=== PATIENT | female | born 1995 | race African-American/Black ===

== ENCOUNTER 2016-11-22 18:19 | Inpatient (IN) | payer MEDICAID, OTHER ==
[~2016-11-22] VITALS: Ht 180.3 cm; Wt 68.0 kg
[2016-11-22] MEDS ORDERED: SODIUM CHLORIDE 0.9% 1,000 ML IV ONE ×2 (19:00→21:45)
[2016-11-22] MEDS ORDERED: MORPHINE SULFATE 4 MG/ML CPJ (NOT FOR IM USE) IV STA (19:00)
[2016-11-22] MEDS ORDERED: ONDANSETRON HCL 4MG/2ML VIAL IV STA (19:00)
[2016-11-22 19:20] LABS: BASOPHILS % 0.8 % (0.0-2.0); EOSINOPHILS % 0.3 % (0.0-5.0); HEMATOCRIT. 41.9 % (36.0-48.0); HEMOGLOBIN. 13.4 g/dL (12.0-16.0); LYMPHOCYTES % 16.9 % (20.0-50.0); MEAN CORPUSCULAR HEMOGLOBIN 22.8 pg (28.0-32.0); MEAN CORPUSCULAR VOLUME 71.1 fL (81.0-99.0); MEAN PLATELET VOLUME 9.1 fl (7.4-10.4); MONOCYTES % 7.3 % (2.0-8.0); NEUTROPHILS % 74.7 % (40.0-76.0); PLATELET 301 x1000/uL (130-400); RED BLOOD CELL COUNT 5.89 mill/uL (4.2-5.4); RED CELL DISTRIBUTION WIDTH 16.9 % (11.6-14.6)
[2016-11-22 19:24] LABS: CHLORIDE 107 mEq/L (98-107)
[2016-11-22 19:27] LABS: INR 1.1; PROTHROMBIN TIME 11.7 sec (9.4-11.6)
[2016-11-22 19:30] LABS: HCG SCREEN NEGATIVE
[2016-11-22 19:33] LABS: CARBON DIOXIDE 22 mEq/L (21-32)
[2016-11-22 19:50] LABS: CLARITY URINE TURBID (CLEAR); COLOR URINE DARK YELLOW (YELLOW); GLUCOSE URINE NEGATIVE (NEGATIVE); KETONES URINE 3+ (NEGATIVE); LEUKOCYTE ESTERASE URINE TRACE (NEGATIVE); NITRITE URINE NEGATIVE (NEGATIVE); OCCULT BLOOD URINE 2+ (NEGATIVE); PH URINE 5.5 (4.5-8.0); PROTEIN URINE 3+ (NEGATIVE); SPECIFIC GRAVITY URINE 1.045 (1.005-1.030)
[2016-11-22 20:07] LABS: *AMPHETAMINES SCREEN URINE NEGATIVE (NEGATIVE); *BARBITURATES SCREEN URINE NEGATIVE (NEGATIVE); *BENZODIAZEPINES SCREEN URINE NEGATIVE (NEGATIVE); *COCAINE SCREEN URINE NEGATIVE (NEGATIVE); CANNABINOID URINE SCREEN PRESUMTIVE POSITIVE (NEGATIVE); METHADONE URINE SCREEN NEGATIVE (NEGATIVE); OPIATES URINE SCREEN NEGATIVE (NEGATIVE); PHENCYCLIDINE URINE SCREEN NEGATIVE (NEGATIVE)
[2016-11-22] MEDS ORDERED: MORPHINE SULFATE 4 MG/ML CPJ (NOT FOR IM USE) IV ONE (21:30)
[2016-11-22] MEDS ORDERED: ONDANSETRON HCL 4MG/2ML VIAL IV ONE (21:30)
[2016-11-23] MEDS ORDERED: KETOROLAC 30MG/ML VIAL IV ONE (00:45)
[2016-11-23] MEDS ORDERED: ONDANSETRON HCL 4MG/2ML VIAL IV ONE (00:45)
[2016-11-23] MEDS ORDERED: MORPHINE SULFATE 4 MG/ML CPJ (NOT FOR IM USE) IV PRN (08:15)
[2016-11-23] MEDS ORDERED: ONDANSETRON HCL 4MG/2ML VIAL IV PRN ×2 (08:15→09:15)
[2016-11-23] MEDS ORDERED: LEVOFLOXACIN 500MG PREMIX 100 ML IV SCH (09:15)
[2016-11-23] MEDS: HYDROMORPHONE HCL/PF 2MG/ML CPJ IV PRN ×5 (10:02→23:51)
[2016-11-23 10:40] VITALS: BP 95/48
[2016-11-23 12:00] VITALS: BP 96/52
[2016-11-23] MEDS: LEVOFLOXACIN 500MG PREMIX 100 ML IV SCH (13:24)
[2016-11-23] MEDS: DEXT 5%/0.45% NACL 1000ML 1,000 ML IV SCH (13:24)
[2016-11-23 15:54] VITALS: BP 95/44
[2016-11-23 20:00] VITALS: BP 108/71
[2016-11-24] VITALS (7 sets, daily range): BP systolic 86–106; BP diastolic 34–60
[2016-11-24] MEDS: HYDROMORPHONE HCL/PF 2MG/ML CPJ IV PRN ×8 (02:14→23:11)
[2016-11-24] MEDS: DEXT 5%/0.45% NACL 1000ML 1,000 ML IV SCH (04:40)
[2016-11-24 07:00] LABS: BASOPHILS % 0.2 % (0.0-2.0); HEMATOCRIT. 32.9 % (36.0-48.0); HEMOGLOBIN. 10.8 g/dL (12.0-16.0); LYMPHOCYTES % 23.3 % (20.0-50.0); MEAN CORPUSCULAR HEMOGLOBIN 23.1 pg (28.0-32.0); MEAN CORPUSCULAR VOLUME 70.6 fL (81.0-99.0); MEAN PLATELET VOLUME 9.2 fl (7.4-10.4); MONOCYTES % 11.2 % (2.0-8.0); NEUTROPHILS % 64.3 % (40.0-76.0); PLATELET 225 x1000/uL (130-400); RED BLOOD CELL COUNT 4.66 mill/uL (4.2-5.4); RED CELL DISTRIBUTION WIDTH 16.4 % (11.6-14.6)
[2016-11-24 09:07] LABS: CARBON DIOXIDE 25 mEq/L (21-32); CHLORIDE 105 mEq/L (98-107)
[2016-11-24] MEDS: LEVOFLOXACIN 500MG PREMIX 100 ML IV SCH (12:08)
[2016-11-24] MEDS ORDERED: SODIUM CHLORIDE 0.9% 10ML VIAL ONE (13:53)
[2016-11-24] MEDS ORDERED: IOHEXOL-300 100 ML BOTTLE ONE (13:53)
[2016-11-24 17:07] LABS: HCG SCREEN NEGATIVE
[2016-11-25] MEDS: DEXT 5%/0.45% NACL 1000ML 1,000 ML IV SCH ×2 (01:20→15:22)
[2016-11-25] MEDS: HYDROMORPHONE HCL/PF 2MG/ML CPJ IV PRN ×8 (01:36→23:26)
[2016-11-25 04:00] VITALS: BP 98/45
[2016-11-25 06:49] LABS: BASOPHILS % 0.8 % (0.0-2.0); EOSINOPHILS % 2.4 % (0.0-5.0); HEMATOCRIT. 34.2 % (36.0-48.0); HEMOGLOBIN. 11.1 g/dL (12.0-16.0); LYMPHOCYTES % 38.1 % (20.0-50.0); MEAN CORPUSCULAR HEMOGLOBIN 22.9 pg (28.0-32.0); MEAN CORPUSCULAR VOLUME 70.8 fL (81.0-99.0); MEAN PLATELET VOLUME 9.1 fl (7.4-10.4); MONOCYTES % 11.7 % (2.0-8.0); PLATELET 233 x1000/uL (130-400); RED BLOOD CELL COUNT 4.83 mill/uL (4.2-5.4); RED CELL DISTRIBUTION WIDTH 16.3 % (11.6-14.6)
[2016-11-25 07:48] LABS: CARBON DIOXIDE 29 mEq/L (21-32); CHLORIDE 105 mEq/L (98-107)
[2016-11-25 08:00] VITALS: BP 92/40
[2016-11-25 12:20] VITALS: BP 108/54
[2016-11-25] MEDS: LEVOFLOXACIN 500MG PREMIX 100 ML IV SCH (12:42)
[2016-11-25 16:00] VITALS: BP 92/50
[2016-11-25 20:00] VITALS: BP 96/40
[2016-11-26] VITALS: BP 105/61
[2016-11-26] MEDS: HYDROMORPHONE HCL/PF 2MG/ML CPJ IV PRN ×4 (02:40→13:16)
[2016-11-26 04:00] VITALS: BP 100/54
[2016-11-26] MEDS: DEXT 5%/0.45% NACL 1000ML 1,000 ML IV SCH (06:01)
[2016-11-26 08:00] VITALS: BP 102/54
[2016-11-26 12:00] VITALS: BP 105/56
[2016-11-26] MEDS: LEVOFLOXACIN 500MG PREMIX 100 ML IV SCH (13:15)
[2016-11-26 13:53] VITALS: BP 105/105
== END 2016-11-26 14:50 | disposition home or self-care (01) | DRG 463 ==
LOC: ER 18:19 → 8WST 23:17 → ENRESERV 11-23 09:22
PROVIDERS: ADMIT Hospitalist; ATTEND Hospitalist
DX: N10 Acute pyelonephritis (principal); N05.9 Unspecified nephritic syndrome with unspecified morphologic changes; Z90.49 Acquired absence of other specified parts of digestive tract
CPT/HCPCS: 36415; 74177; 76705; 80053; 80305; 81001; 82962; 83690; 84703; 85025; 85610; 87086; 96361; 96374; 96375; 96376; 99285; A4216; J1170; J1885; J1956; J2270; J2405; J7030; Q9967

== ENCOUNTER 2018-04-21 00:44 | Inpatient (IN) | payer MEDICAID ==
[~2018-04-21] VITALS: Ht 180.3 cm; Wt 59.4 kg
[2018-04-21] MEDS ORDERED: SODIUM CHLORIDE 0.9% 1,000 ML IV ONE ×2 (02:32→04:15)
[2018-04-21] MEDS ORDERED: ONDANSETRON HCL 4MG/2ML INJ IV STA (02:32)
[2018-04-21] MEDS ORDERED: MORPHINE SULFATE 4 MG/ML CPJ (NOT FOR IM USE) IV STA (02:32)
[2018-04-21 02:50] LABS: BASOPHILS % 0.4 % (0.0-2.0); CHLORIDE 95 mEq/L (98-107); EOSINOPHILS % 0.5 % (0.0-5.0); HEMATOCRIT. 45.5 % (36.0-48.0); HEMOGLOBIN. 14.7 g/dL (12.0-16.0); LYMPHOCYTES % 10.2 % (20.0-50.0); MEAN CORPUSCULAR HEMOGLOBIN 22.5 pg (28.0-32.0); MEAN CORPUSCULAR VOLUME 69.5 fL (81.0-99.0); MEAN PLATELET VOLUME 9.3 fl (7.4-10.4); MONOCYTES % 9.5 % (2.0-8.0); NEUTROPHILS % 79.4 % (40.0-76.0); PLATELET 267 x1000/uL (130-400); RED BLOOD CELL COUNT 6.55 mill/uL (4.2-5.4); RED CELL DISTRIBUTION WIDTH 17.7 % (11.6-14.6)
[2018-04-21 02:57] LABS: *AMPHETAMINES SCREEN URINE NEGATIVE (NEGATIVE); *BARBITURATES SCREEN URINE NEGATIVE (NEGATIVE); *BENZODIAZEPINES SCREEN URINE NEGATIVE (NEGATIVE); *COCAINE SCREEN URINE NEGATIVE (NEGATIVE)
[2018-04-21 02:59] LABS: METHADONE URINE SCREEN NEGATIVE (NEGATIVE); OPIATES URINE SCREEN PRESUMTIVE POSITIVE (NEGATIVE); PHENCYCLIDINE URINE SCREEN NEGATIVE (NEGATIVE)
[2018-04-21 03:01] LABS: CANNABINOID URINE SCREEN PRESUMTIVE POSITIVE (NEGATIVE)
[2018-04-21 03:05] LABS: CLARITY URINE TURBID (CLEAR); COLOR URINE DARK YELLOW (YELLOW); KETONES URINE TRACE (NEGATIVE); LEUKOCYTE ESTERASE URINE TRACE (NEGATIVE); NITRITE URINE NEGATIVE (NEGATIVE); OCCULT BLOOD URINE 3+ (NEGATIVE); PROTEIN URINE 2+ (NEGATIVE); SPECIFIC GRAVITY URINE 1.036 (1.005-1.030)
[2018-04-21] MEDS ORDERED: MORPHINE SULFATE 4 MG/ML CPJ (NOT FOR IM USE) IV ONE (04:15)
[2018-04-21 05:41] LABS: PLATELET ESTIMATE NORMAL
[2018-04-21] MEDS ORDERED: CEPHALEXIN 250MG CAPSULE PO ONE (05:45)
[2018-04-21] MEDS ORDERED: ENOXAPARIN 40MG/0.4ML SYR SUBCUT SCH (08:30)
[2018-04-21] MEDS ORDERED: ONDANSETRON HCL 4MG/2ML INJ IV PRN ×2 (08:30→20:45)
[2018-04-21] MEDS ORDERED: IPRATROPIUM/ALBUTEROL 0.5-3(2.5)MG/3ML NEB INH PRN (08:30)
[2018-04-21] MEDS ORDERED: CLONIDINE 0.1MG TABLET PO PRN ×2 (08:30→20:45)
[2018-04-21] MEDS ORDERED: LEVOFLOXACIN 500MG PREMIX 100 ML IV SCH (08:30)
[2018-04-21] MEDS ORDERED: ACETAMINOPHEN 325MG TABLET PO PRN ×2 (08:30→21:00)
[2018-04-21] MEDS ORDERED: HYDROCODONE/ACETAMINOPHEN 5/325MG TABLET PO PRN ×2 (08:30→20:45)
[2018-04-21] MEDS ORDERED: NA PHOS,M-B/NA PHOS,DI-BA ENEMA 118ML PR PRN (08:30)
[2018-04-21] MEDS ORDERED: HYDROCODONE/ACETAMINOPHEN 10/325MG TABLET PO PRN ×2 (08:30→20:45)
[2018-04-21] MEDS ORDERED: ACETAMINOPHEN 650MG/20.3ML UDC GT PRN (08:30)
[2018-04-21] MEDS ORDERED: GUAIFENESIN 200MG/10ML SUGAR FREE UDC PO PRN (08:30)
[2018-04-21] MEDS ORDERED: DIPHENHYDRAMINE 50MG/ML VIAL IV PRN (08:30)
[2018-04-21] MEDS ORDERED: MAGNESIUM/ALUMINUM HYDROXIDE/SIMETHICONE 30ML UDC PO PRN (08:30)
[2018-04-21] MEDS ORDERED: ACETAMINOPHEN 650MG SUPP PR PRN (08:30)
[2018-04-21] MEDS ORDERED: DOCUSATE SODIUM 100MG CAPSULE PO PRN (08:30)
[2018-04-21] MEDS ORDERED: BISACODYL 5MG TABLET PO PRN (09:15)
[2018-04-21] MEDS ORDERED: BISACODYL 10MG SUPP PR PRN (09:15)
[2018-04-21] MEDS ORDERED: LACTULOSE 20G/30ML UDC PO SCH (11:00)
[2018-04-21 12:35] LABS: INR 1.1
[2018-04-21] MEDS ORDERED: SODIUM CHLORIDE 0.9% INJ 3ML FLUSH IVF SCH (14:00)
[2018-04-21 16:30] VITALS: BP 106/66
[2018-04-21] MEDS ORDERED: KETOROLAC 30MG/ML VIAL IV NR (18:30)
[2018-04-21 20:00] VITALS: BP 122/62
[2018-04-21] MEDS: ENOXAPARIN 40MG/0.4ML SYR SUBCUT SCH (20:00)
[2018-04-21] MEDS: LEVOFLOXACIN 500MG PREMIX 100 ML IV SCH (20:02)
[2018-04-21 20:38] LABS: CHLORIDE 101 mEq/L (98-107)
[2018-04-21 20:55] LABS: HCG SCREEN NEGATIVE
[2018-04-21] MEDS: DIPHENHYDRAMINE 50MG/ML VIAL IV PRN (20:58)
[2018-04-21] MEDS: SODIUM CHLORIDE 0.9% INJ 3ML FLUSH IVF SCH (21:21)
[2018-04-21 22:05] LABS: BASOPHILS % 0.5 % (0.0-2.0); EOSINOPHILS % 3.3 % (0.0-5.0); LYMPHOCYTES % 15.3 % (20.0-50.0); MEAN CORPUSCULAR HEMOGLOBIN 22.4 pg (28.0-32.0); MEAN PLATELET VOLUME 9.2 fl (7.4-10.4); MONOCYTES % 11.5 % (2.0-8.0); NEUTROPHILS % 69.4 % (40.0-76.0); PLATELET 212 x1000/uL (130-400); RED BLOOD CELL COUNT 5.22 mill/uL (4.2-5.4); RED CELL DISTRIBUTION WIDTH 17.8 % (11.6-14.6)
[2018-04-21 22:15] LABS: HEMOGLOBIN. 11.7 g/dL (12.0-16.0)
[2018-04-21 22:16] LABS: HEMATOCRIT. 37.1 % (36.0-48.0)
[2018-04-22] VITALS (7 sets, daily range): BP systolic 112–145; BP diastolic 76–99
[2018-04-22] MEDS: DIPHENHYDRAMINE 50MG/ML VIAL IV PRN ×4 (00:59→22:07)
[2018-04-22] MEDS: SODIUM CHLORIDE 0.9% 1,000 ML IV SCH ×2 (04:17→14:19)
[2018-04-22] MEDS: SODIUM CHLORIDE 0.9% INJ 3ML FLUSH IVF SCH ×3 (05:17→22:07)
[2018-04-22] MEDS ORDERED: BISACODYL 5MG TABLET PO NR (10:15)
[2018-04-22] MEDS ORDERED: NA PHOS,M-B/NA PHOS,DI-BA ENEMA 118ML PR NR ×2 (10:15)
[2018-04-22] MEDS ORDERED: KETOROLAC 15MG/ML VIAL IV PRN (10:15)
[2018-04-22] MEDS ORDERED: BISACODYL 10MG SUPP PR NR (10:15)
[2018-04-22] MEDS ORDERED: MAGNESIUM CITRATE 300ML SOLUTION PO NR (12:00)
[2018-04-22 13:34] LABS: CLARITY URINE CLOUDY (CLEAR); COLOR URINE DARK YELLOW (YELLOW); KETONES URINE 1+ (NEGATIVE); LEUKOCYTE ESTERASE URINE TRACE (NEGATIVE); NITRITE URINE NEGATIVE (NEGATIVE); OCCULT BLOOD URINE 3+ (NEGATIVE); PH URINE 5.5 (4.5-8.0); PROTEIN URINE 1+ (NEGATIVE); SPECIFIC GRAVITY URINE 1.039 (1.005-1.030)
[2018-04-22 13:39] LABS: UCG SCREEN NEGATIVE
[2018-04-22] MEDS ORDERED: PANTOPRAZOLE 40MG DR TABLET PO ONE (14:30)
[2018-04-22] MEDS: PANTOPRAZOLE SODIUM 40 MG/VIAL IV SCH ×2 (15:21→20:22)
[2018-04-22] MEDS ORDERED: LEVO500T2 MT (17:17)
[2018-04-22] MEDS: METOCLOPRAMIDE HCL 10MG/2ML VIAL IV SCH ×2 (18:00→23:59)
[2018-04-22] MEDS ORDERED: BISACODYL 10MG SUPP PR PRN (19:00)
[2018-04-22] MEDS: LEVOFLOXACIN 500MG PREMIX 100 ML IV SCH (20:00)
[2018-04-22] MEDS: MORPHINE SULFATE 4 MG/ML CPJ (NOT FOR IM USE) IV PRN (20:15)
[2018-04-22] MEDS: ENOXAPARIN 40MG/0.4ML SYR SUBCUT SCH (20:29)
[2018-04-22 21:57] LABS: CHLORIDE 101 mEq/L (98-107)
[2018-04-22 22:00] LABS: HCG SCREEN NEGATIVE
[2018-04-22 22:05] LABS: BASOPHILS % 0.8 % (0.0-2.0); EOSINOPHILS % 2.7 % (0.0-5.0); HDL CHOLESTEROL 53 mg/dL (40-59); HEMATOCRIT. 35.5 % (36.0-48.0); HEMOGLOBIN. 11.4 g/dL (12.0-16.0); LDL CHOLESTEROL 54 mg/dL (5-100); LYMPHOCYTES % 21.6 % (20.0-50.0); MEAN CORPUSCULAR HEMOGLOBIN 22.6 pg (28.0-32.0); MEAN CORPUSCULAR VOLUME 70.4 fL (81.0-99.0); MEAN PLATELET VOLUME 9.1 fl (7.4-10.4); MONOCYTES % 11.8 % (2.0-8.0); NEUTROPHILS % 63.1 % (40.0-76.0); PLATELET 232 x1000/uL (130-400); RED BLOOD CELL COUNT 5.04 mill/uL (4.2-5.4); RED CELL DISTRIBUTION WIDTH 17.5 % (11.6-14.6)
[2018-04-22 22:25] LABS: HEPATITIS B SURFACE ANTIGEN NEGATIVE
[2018-04-22 22:55] LABS: HEPATITIS A AB IGM NEGATIVE (NEGATIVE)
[2018-04-23] VITALS: BP 117/78
[2018-04-23] MEDS: SODIUM CHLORIDE 0.9% 1,000 ML IV SCH (00:19)
[2018-04-23] MEDS: DIPHENHYDRAMINE 50MG/ML VIAL IV PRN ×2 (02:00→06:33)
[2018-04-23 04:00] VITALS: BP 152/91
[2018-04-23] MEDS: MORPHINE SULFATE 4 MG/ML CPJ (NOT FOR IM USE) IV PRN ×2 (04:47)
[2018-04-23] MEDS: SODIUM CHLORIDE 0.9% INJ 3ML FLUSH IVF SCH (05:45)
[2018-04-23] MEDS: METOCLOPRAMIDE HCL 10MG/2ML VIAL IV SCH (05:45)
[2018-04-23 10:12] VITALS: BP 126/88
== END 2018-04-23 10:15 | disposition home or self-care (01) | DRG 247 ==
LOC: ER 00:44 → 6EST 05:45 → ENRESERV 15:42 → ER 16:53
PROVIDERS: ADMIT Family Medicine; ATTEND Family Medicine
DX: K56.41 Fecal impaction (principal); N17.0 Acute kidney failure with tubular necrosis; N39.0 Urinary tract infection, site not specified; K52.9 Noninfective gastroenteritis and colitis, unspecified; F12.90 Cannabis use, unspecified, uncomplicated; G89.29 Other chronic pain; E80.6 Other disorders of bilirubin metabolism; Z90.49 Acquired absence of other specified parts of digestive tract; Z90.6 Acquired absence of other parts of urinary tract
CPT/HCPCS: 36415; 72148; 74021; 74176; 76700; 76770; 76856; 80061; 80076; 80305; 81025; 82248; 84703; 86705; 86709; 86803; 87340; 96374; 96375; 99285; C9113; J1200; J1650; J1885; J1956; J2270; J2405; J2765; J7030

== ENCOUNTER 2018-06-26 12:20 | Emergency (ER) | payer MEDICAID ==
[~2018-06-26] VITALS: Ht 165.1 cm; Wt 59.0 kg
[~2018-06-26 12:20] MED LIST: LEVO500T2 MT
[2018-06-26] MEDS ORDERED: SODIUM CHLORIDE 0.9% 1,000 ML IV ONE ×3 (12:30→14:29)
[2018-06-26] MEDS ORDERED: ONDANSETRON HCL 4MG/2ML INJ IV STA (12:30)
[2018-06-26] MEDS ORDERED: FAMOTIDINE 20MG/2ML VIAL IV ONE (12:30)
[2018-06-26] MEDS ORDERED: MORPHINE SULFATE 4 MG/ML CPJ (NOT FOR IM USE) IV STA (12:30)
[2018-06-26 12:52] LABS: BASOPHILS % 0.8 % (0.0-2.0); EOSINOPHILS % 1.5 % (0.0-5.0); HEMATOCRIT. 44.5 % (36.0-48.0); HEMOGLOBIN. 14.4 g/dL (12.0-16.0); LYMPHOCYTES % 25.7 % (20.0-50.0); MEAN CORPUSCULAR HEMOGLOBIN 22.8 pg (28.0-32.0); MEAN CORPUSCULAR VOLUME 70.5 fL (81.0-99.0); MEAN PLATELET VOLUME 8.7 fl (7.4-10.4); MONOCYTES % 12.1 % (2.0-8.0); NEUTROPHILS % 59.9 % (40.0-76.0); PLATELET 353 x1000/uL (130-400); RED BLOOD CELL COUNT 6.32 mill/uL (4.2-5.4); RED CELL DISTRIBUTION WIDTH 16.7 % (11.6-14.6)
[2018-06-26 12:56] LABS: CHLORIDE 97 mEq/L (98-107)
[2018-06-26 13:00] LABS: INR 2.2; PARTIAL THROMBOPLASTIN TIME 33.6 sec (23.4-31.0); PROTHROMBIN TIME 22.2 sec (9.6-11.0)
[2018-06-26 13:02] LABS: ETHANOL BLOOD < 10 mg/dL
[2018-06-26 13:07] LABS: HCG SCREEN NEGATIVE
[2018-06-26] MEDS ORDERED: KETOROLAC 30MG/ML VIAL IV ONE (13:30)
[2018-06-26] MEDS ORDERED: MORPHINE SULFATE 4 MG/ML CPJ (NOT FOR IM USE) IV ONE (14:30)
[2018-06-26] MEDS ORDERED: MAGNESIUM/ALUMINUM HYDROXIDE/SIMETHICONE 30ML UDC PO ONE (14:30)
[2018-06-26] MEDS ORDERED: ONDANSETRON HCL 4MG/2ML INJ IV ONE (14:30)
[2018-06-26] MEDS ORDERED: METOCLOPRAMIDE HCL 10MG/2ML VIAL IV ONE (16:00)
[2018-06-26] MEDS ORDERED: LORAZEPAM 2MG/ML CPJ IV ONE (16:30)
[2018-06-26 19:45] VITALS: BP 95/54
== END 2018-06-26 19:46 | disposition home or self-care (01) ==
LOC: ER 12:20
DX: K29.70 Gastritis, unspecified, without bleeding (principal); F12.10 Cannabis abuse, uncomplicated; Z90.49 Acquired absence of other specified parts of digestive tract
CPT/HCPCS: 36415; 71045; 74176; 80053; 80320; 82962; 83880; 84484; 84703; 85025; 85610; 85730; 93005; 96361; 96374; 96375; 96376; 99284; J1885; J2060; J2270; J2405; J2765; J3490; J7030; G0480

== ENCOUNTER 2018-08-15 17:34 | Emergency (ER) | payer MEDICAID ==
[~2018-08-15] VITALS: Ht 180.3 cm; Wt 68.0 kg
[2018-08-15 17:53] VITALS: BP 118/60
[2018-08-15 18:18] LABS: CLARITY URINE CLEAR (CLEAR); COLOR URINE YELLOW (YELLOW); KETONES URINE TRACE (NEGATIVE); LEUKOCYTE ESTERASE URINE TRACE (NEGATIVE); NITRITE URINE NEGATIVE (NEGATIVE); OCCULT BLOOD URINE NEGATIVE (NEGATIVE); PROTEIN URINE NEGATIVE (NEGATIVE); SPECIFIC GRAVITY URINE 1.027 (1.005-1.030)
[2018-08-15] MEDS ORDERED: AZITHROMYCIN 500 MG TABLET PO STA (18:26)
[2018-08-15] MEDS ORDERED: CEFTRIAXONE SODIUM 250 MG/VIAL IM ONE (18:30)
[2018-08-15] MEDS ORDERED: FLUCONAZOLE 100MG TABLET PO ONE (18:30)
[2018-08-15] MEDS ORDERED: FLUCONAZOLE 150MG TABLET PO NR (19:00)
== END 2018-08-15 19:00 | disposition home or self-care (01) ==
LOC: ER 17:52
DX: N34.2 Other urethritis (principal); N89.8 Other specified noninflammatory disorders of vagina; F12.10 Cannabis abuse, uncomplicated; Z90.49 Acquired absence of other specified parts of digestive tract; Z79.899 Other long term (current) drug therapy
CPT/HCPCS: 81003; 81025; 96372; 99283; J0696; Z7610

== ENCOUNTER 2018-12-15 10:41 | Emergency (ER) | payer MEDICAID ==
[~2018-12-15] VITALS: Ht 180.3 cm; Wt 74.0 kg
[2018-12-15 11:12] VITALS: BP 117/63
== END 2018-12-15 12:52 | disposition left against medical advice (07) ==
LOC: ER 10:41
DX: Z53.21 Procedure and treatment not carried out due to patient leaving prior to being seen by health care provider (principal); Z90.49 Acquired absence of other specified parts of digestive tract

== ENCOUNTER 2019-04-28 12:40 | Emergency (ER) | payer MEDICAID, MEDICARE ==
[~2019-04-28] VITALS: Ht 180.3 cm; Wt 72.0 kg
[2019-04-28 14:31] LABS: CLARITY URINE CLEAR (CLEAR); COLOR URINE YELLOW (YELLOW); KETONES URINE TRACE (NEGATIVE); LEUKOCYTE ESTERASE URINE TRACE (NEGATIVE); NITRITE URINE NEGATIVE (NEGATIVE); OCCULT BLOOD URINE 1+ (NEGATIVE); PROTEIN URINE NEGATIVE (NEGATIVE); SPECIFIC GRAVITY URINE 1.025 (1.005-1.030)
[2019-04-28] MEDS ORDERED: ACETAMINOPHEN 500MG TABLET PO ONE (14:45)
[2019-04-28] MEDS ORDERED: ONDANSETRON 4MG ODT PO ONE (14:45)
[2019-04-28 14:58] LABS: BASOPHILS % 0.5 % (0.0-2.0); EOSINOPHILS % 1.3 % (0.0-5.0); HEMATOCRIT. 39.2 % (36.0-48.0); LYMPHOCYTES % 20.2 % (20.0-50.0); MEAN CORPUSCULAR HEMOGLOBIN 25.1 pg (28.0-32.0); MEAN CORPUSCULAR VOLUME 75.7 fL (81.0-99.0); MEAN PLATELET VOLUME 8.8 fl (7.4-10.4); MONOCYTES % 5.5 % (2.0-8.0); NEUTROPHILS % 72.5 % (40.0-76.0); PLATELET 258 x1000/uL (130-400); RED BLOOD CELL COUNT 5.17 mill/uL (4.2-5.4); RED CELL DISTRIBUTION WIDTH 15.5 % (11.6-14.6)
[2019-04-28 15:01] LABS: CHLORIDE 104 mEq/L (98-107)
[2019-04-28 15:33] LABS: B-HCG QUANTITATIVE 10599 mIU/mL (<3)
[2019-04-28] MEDS ORDERED: HYDROCODONE/ACETAMINOPHEN 5/325MG TABLET PO ONE ×2 (19:15→22:30)
[2019-04-28] MEDS ORDERED: CEFTRIAXONE 1 G PREMIX 50 ML IV ONE (20:45)
[2019-04-28] MEDS ORDERED: CEFTRIAXONE SODIUM 250 MG/VIAL IM ONE (20:45)
[2019-04-28] MEDS ORDERED: SODIUM CHLORIDE 0.9% 1,000 ML IV ONE (21:45)
[2019-04-29 04:05] VITALS: BP 91/36
[2019-04-29] MEDS ORDERED: PNV1TABL76 PO (05:47)
== END 2019-04-29 04:08 | disposition home or self-care (01) ==
LOC: ER 12:40 → CANRESERV 04-29 08:02 → ENRESERV 04-29 08:02 → CANBEDREQ 04-29 22:29
DX: O23.42 Unspecified infection of urinary tract in pregnancy, second trimester (principal); O99.322 Drug use complicating pregnancy, second trimester; F12.90 Cannabis use, unspecified, uncomplicated; Z3A.20 20 weeks gestation of pregnancy; Z90.49 Acquired absence of other specified parts of digestive tract
CPT/HCPCS: 36415; 76805; 80053; 81003; 81025; 84702; 85025; 86850; 86900; 86901; 96374; 99285; J0696; J7030; Q0162

== ENCOUNTER 2019-04-29 04:27 | Observation (INO) | payer MEDICARE ==
[~2019-04-29] VITALS: Ht 180.3 cm; Wt 72.6 kg
[2019-04-29] MEDS ORDERED: ACETAMINOPHEN WITH CODEINE 300/30MG TABLET PO SCH (05:15)
[2019-04-29 05:25] VITALS: BP 111/56
[2019-04-29] MEDS ORDERED: PNV1TABL76 PO (05:47)
[2019-04-29] MEDS ORDERED: LACTATED RINGERS 1,000 ML IV SCH (07:00)
[2019-04-29] MEDS ORDERED: CEFAZOLIN 2,000 MG in DEXT 5% WATER 100 ML IV SCH (07:30)
[2019-04-29] MEDS ORDERED: ONDANSETRON HCL 4MG TABLET PO NR (09:30)
== END 2019-04-29 09:45 | disposition home or self-care (01) ==
LOC: 8EST NSY 04:27 → 8 EST A/PP 05:26
PROVIDERS: ADMIT Obstetrics & Gynecology; ATTEND Obstetrics & Gynecology
DX: O36.8320 Maternal care for abnormalities of the fetal heart rate or rhythm, second trimester, not applicable or unspecified (principal); Z3A.20 20 weeks gestation of pregnancy
CPT/HCPCS: 96365; 99281; G0378; J0690; J7060; Q0162